=== PATIENT | female | born 1995 | race Caucasian/White ===

== ENCOUNTER 2022-07-21 13:46 | Outpatient (CLI) | payer BC, SELFPAY | END 2022-07-21 13:47 | disposition home or self-care (01) | LOC: NFLDREF 07-24 14:08 | PROVIDERS: PCP Registered Nurse; Referring Provider Registered Nurse; Visit Provider Registered Nurse | DX: R30.0 Dysuria (principal); R10.9 Unspecified abdominal pain; M54.9 Dorsalgia, unspecified; K52.9 Noninfective gastroenteritis and colitis, unspecified; R11.0 Nausea | CPT/HCPCS: 87086 ==